=== PATIENT | male | born 1955 | race Caucasian/White ===

== ENCOUNTER → 2016-12-21 | Outpatient (CLI) | payer OTHER ==
[~2016-12-21] MED LIST: ANAPROX DS550 MG PO; FLEXERIL10 MG PO; PROCTOCREAM-HC2.5% TP; TRAMADOL HCL50 MG PO
== END | disposition home or self-care (01) ==
LOC: RAD 13:20
DX: M25.512 Pain in left shoulder (principal); Z91.81 History of falling

== ENCOUNTER → 2018-08-12 | Outpatient (CLI) | payer OTHER ==
[2018-08-12 12:16] LABS: BUN 21 mg/dl (7-24); CREATININE 0.85 mg/dL (0.70-1.30)
== END | disposition home or self-care (01) ==
LOC: LAB 11:16
PROVIDERS: Specialist
DX: J38.01 Paralysis of vocal cords and larynx, unilateral (principal)